=== PATIENT | male | born 1985 | race Two or more races ===

== ENCOUNTER 2018-12-11 06:18 | Emergency (ER) | payer SELFPAY ==
[~2018-12-11] VITALS: Ht 185.4 cm; Wt 81.6 kg
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
[2018-12-11] MEDS ORDERED: ACETAMINOPHEN ES 500 MG TABLET ONE (06:30)
[2018-12-11] MEDS ORDERED: ACETAMINOPHEN ES 500 MG TABLET PO ONE (06:30)
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
--- NOTE | 2018-12-11 06:41 | NUR ---
PD AT BEDSIDE
[2018-12-11 07:31] VITALS: BP 118/78
== END 2018-12-11 07:32 | disposition home or self-care (01) ==
LOC: ER 06:18
DX: S00.83XA Contusion of other part of head, initial encounter (principal); R41.82 Altered mental status, unspecified; R51 Headache; Y04.8XXA Assault by other bodily force, initial encounter; Y93.89 Activity, other specified; Y92.89 Other specified places as the place of occurrence of the external cause; Y99.8 Other external cause status
CPT/HCPCS: 70450-TC; 72125-TC